=== PATIENT | male | born 1970 | race Caucasian/White ===

== ENCOUNTER → 2020-06-30 09:59 | Outpatient (CLI) | payer OTHER, SELFPAY ==
[2020-06-30 09:25] VITALS: BMI 51.9
[2020-06-30 12:32] LABS: AST(SGOT) 17 U/L (15-37); Alanine Aminotransfer ALT/SGPT 41 U/L (16-61); Albumin, Serum 3.9 g/dL (3.2-5.0); Alkaline Phosphatase 85 U/L (45-117); Anion Gap 6 (5-15); BUN 19 mg/dL (7-18); BUN/Creat Ratio 23.9 RATIO (10-20); Calcium,Total 9.1 mg/dL (8.5-10.1); Chloride 104 mmol/L (98-107); Cholesterol 186 mg/dL (200); EST Glomerular Filtration Rate 109 mL/min (>60); Est Glom Filt Rate - Afr Amer 131 mL/min (>60); Globulin 3.9 g/dL (2.2-4.2); Glucose 94 mg/dL (74-106); High Density Lipoprotein 51 mg/dL; Protein, Total 7.8 g/dL (6.4-8.2); Sodium Level 140 mmol/L (136-145); Thyroid Stim Hormone (TSH) 1.06 uIU/mL (0.358-3.74); Triglycerides 85 mg/dL; Very Low Density Lipoprotein 17 mg/dL (5-40)
[2020-06-30 12:47] LABS: Microalbumin,Random Urine 11.1 mg/L (NO RANGE EST.); Microalbumin:Creatinine Ratio 10.4 mg/g CRE (<30 mg/g CRE)
== END ==
PROVIDERS: Referring Provider Internal Medicine Endocrinology, Diabetes & Metabolism; Visit Provider Internal Medicine Endocrinology, Diabetes & Metabolism
DX: I10 Essential (primary) hypertension (principal); E78.2 Mixed hyperlipidemia; E11.9 Type 2 diabetes mellitus without complications
CPT/HCPCS: 36415; 80053; 80061; 82043; 82570; 84443

== ENCOUNTER → 2021-06-29 10:08 | Outpatient (CLI) | payer OTHER, SELFPAY ==
[2021-06-29 13:00] LABS: Microalbumin:Creatinine Ratio 15.8 mg/g CRE (<30 mg/g CRE)
[2021-06-29 13:13] LABS: ALB/GLOB Ratio 0.9 RATIO (0.9-2.4); AST(SGOT) 18 U/L (15-37); Alanine Aminotransfer ALT/SGPT 34 U/L (16-61); Albumin, Serum 3.5 g/dL (3.2-5.0); Alkaline Phosphatase 97 U/L (45-117); Anion Gap 4 (5-15); BUN 17 mg/dL (7-18); BUN/Creat Ratio 24.5 RATIO (10-20); Calcium,Total 9.3 mg/dL (8.5-10.1); Chloride 104 mmol/L (98-107); Cholesterol 151 mg/dL (200); EST Glomerular Filtration Rate 126 mL/min (>60); Est Glom Filt Rate - Afr Amer 153 mL/min (>60); Globulin 3.8 g/dL (2.2-4.2); Glucose 92 mg/dL (74-106); High Density Lipoprotein 51 mg/dL; Potassium 3.6 mmol/L (3.5-5.1); Protein, Total 7.3 g/dL (6.4-8.2); Sodium Level 138 mmol/L (136-145); Triglycerides 111 mg/dL; Very Low Density Lipoprotein 22 mg/dL (5-40)
== END ==
PROVIDERS: Referring Provider Internal Medicine Endocrinology, Diabetes & Metabolism; Visit Provider Internal Medicine Endocrinology, Diabetes & Metabolism
DX: E11.42 Type 2 diabetes mellitus with diabetic polyneuropathy (principal); E78.2 Mixed hyperlipidemia; I10 Essential (primary) hypertension; Z79.4 Long term (current) use of insulin
CPT/HCPCS: 36415; 80053; 80061; 82043; 82570; 84443

== ENCOUNTER → 2024-11-24 | Outpatient (CLI) | payer OTHER, SELFPAY ==
--- NOTE | 2024-11-25 | WART_PTH ---
PATIENT: SHAYY SAWYER LOC: RU #:[id number] AGE/SX: 54/M ROOM: RE11/24/[address]: Dr. Kashif Blancas DPM : 1970 BED: DIS: 11/24/2024 SPEC #: [id number] RECD: 11/25/24 14:03 STATUS: PEGGY ETHAN #: [id number] ALE: 11/25/24 00:[address]: Kashif Blancas DEPT: SURGICAL PATHOLOGY RECD BY: Gio Jenkins Tissues: Epidermis Procedures: Surgery Specimen Level IV HEADER OPERATION: Not noted PRE-OP DIAGNOSIS: Plantar wart TISSUE SUBMITTED: A- Verruca lesion MICROSCOPIC DIAGNOSIS A. Skin, Left Foot, Verruca Lesion, shave excision: - Myrmecia, superficial portion - see note. Note: The base of the lesion is not included in these sections. MICROSCOPIC DESCRIPTION Slides are reviewed. GROSS DESCRIPTION A. Received in formalin in a container labeled with the patient's name, date of , and left foot are 2 irregular and unoriented fragments of estevez-pink, possible skin measuring 1.7 x 0.8 x 0.4 cm and 2.2 x 1.3 x 0.8 cm. Each are diffusely indurated and papillary on both sides. The epidermis versus resection margin cannot be distinguished. Serial sections reveal white-mejia, friable surfaces with scattered hemorrhage. No normal skin is grossly recognized. Senior Litigation Paralegal sections of each are submitted in A1. [facility] 11-25-2024 CPT:60900
== END | disposition home or self-care (01) ==
LOC: LABSPEC 17:11
PROVIDERS: Visit Provider Student in an Organized Health Care Education/Training Program
DX: B07.0 Plantar wart (principal)
CPT/HCPCS: 88305